=== PATIENT | female | born 1955 | race Caucasian/White ===

== ENCOUNTER 2019-04-29 17:19 | Emergency (ER) | payer OTHER ==
[~2019-04-29] VITALS: Ht 162.6 cm; Wt 88.0 kg
[~2019-04-29 17:19] MED LIST: ESTROGEN PO; MECL-76 PO
[2019-04-29 17:22] VITALS: BP 171/94
--- NOTE | 2019-04-29 17:41 | NUR ---
FIRST CONTACT WITH PT. PT STATES "I WAS HURT ON MY JOB. I HURT MY LEFT WRIST AND MY LOWER LEFT BACK. I WAS MOPPING AND SLIPPED." NO C/O HEAD TRAUMA PT'S AOX4. RESPS EVEN AND UNLABORED.
[2019-04-29] MEDS ORDERED: DIAZEPAM 5 MG TABLET ONE (17:49)
[2019-04-29] MEDS ORDERED: KETOROLAC 30 MG/1 ML ONE (17:49)
--- NOTE | 2019-04-29 17:56 | NUR ---
PT MEDICATED PER EMAR. PT TOLERATED WELL.
[2019-04-29] MEDS ORDERED: KETOROLAC 30 MG/1 ML IM ONE (18:00)
[2019-04-29] MEDS ORDERED: DIAZEPAM 5 MG TABLET PO ONE (18:00)
--- NOTE | 2019-04-29 19:09 | NUR ---
Patient given discharge instructions and they have confirmed that they understand the instructions. Patient ambulatory with steady gait.
== END 2019-04-29 19:10 | disposition home or self-care (01) ==
LOC: ED 18:45 → MERGE 18:45 → ED 19:10
DX: S39.012A Strain of muscle, fascia and tendon of lower back, initial encounter (principal); S63.522A Sprain of radiocarpal joint of left wrist, initial encounter; F17.200 Nicotine dependence, unspecified, uncomplicated; W01.0XXA Fall on same level from slipping, tripping and stumbling without subsequent striking against object, initial encounter; Y93.89 Activity, other specified; Y92.69 Other specified industrial and construction area as the place of occurrence of the external cause; Y99.0 Civilian activity done for income or pay
CPT/HCPCS: 29260; 72110; 73110; 96372; 99284; J1885

== ENCOUNTER 2020-04-23 18:40 | Emergency (ER) | payer OTHER ==
[~2020-04-23] VITALS: Ht 162.6 cm; Wt 84.2 kg
--- NOTE | 2020-04-23 19:05 | NUR ---
PT STATES "I DO NOT KNOW IF I PULLED A MUSCLE OR IF I HAVE A KIDNEY ISSUE" RIGHT SIDE FLANK PAIN STARTING 2 WEEKS AGO. PT DENIES ANY CP.
--- NOTE | 2020-04-23 19:07 | NUR ---
PT RESTING IN [facility], MONITORING IN PLACE, NAD NOTED AT THIS TIME, WILL CONTINUE TO MONITOR. CXR DONE, LAB AT BS.
[2020-04-23] MEDS ORDERED: ALBUTEROL/IPRATROPIUM 2.5MG/0.5MG, 3 ML NPPB ONE (19:30)
[2020-04-23 19:32] LABS: BASOPHILS % (AUTO) 1 % (0-1); EOSINOPHILS % (AUTO) 5 % (1-7); LYMPHOCYTES % (AUTO) 28 % (22-44); MEAN CORPUSCULAR HEMOGLOBIN 28.9 pg (27.0-34.8); MEAN CORPUSCULAR HGB CONC 33.5 g/dL (32.4-35.8); MEAN PLATELET VOLUME 9.1 fL (7.4-10.4); MONOCYTES % (AUTO) 6 % (2-9); NEUTROPHILS % (AUTO) 60 % (42-75); PLATELET COUNT 153 x10^3/uL (130-400); RED CELL DISTRIBUTION WIDTH 14.1 % (9.6-15.2)
[2020-04-23] MEDS ORDERED: ALBUTEROL/IPRATROPIUM 2.5MG/0.5MG, 3 ML ONE (19:32)
[2020-04-23 19:40] LABS: ALANINE AMINOTRANSFERASE 30 U/L (12-78); ANION GAP 7 mmol/L (5-15); CALCIUM 9.1 mg/dL (8.5-10.1); CHLORIDE 110 mmol/L (98-107)
[2020-04-23 19:43] LABS: ALKALINE PHOSPHATASE 101 U/L (45-117); BILIRUBIN,TOTAL 0.9 mg/dL (0.2-1.0); CREATININE 0.98 mg/dL (0.55-1.02); TOTAL PROTEIN 8.6 g/dL (6.4-8.2)
[2020-04-23 19:45] LABS: MICROSCOPIC INDICATED
[2020-04-23 19:53] LABS: MD SCAN
[2020-04-23 20:43] VITALS: BP 134/81
== END 2020-04-23 20:45 | disposition home or self-care (01) ==
LOC: ED 20:09
DX: S39.012A Strain of muscle, fascia and tendon of lower back, initial encounter (principal); J98.01 Acute bronchospasm; X58.XXXA Exposure to other specified factors, initial encounter; Y93.89 Activity, other specified; Y92.89 Other specified places as the place of occurrence of the external cause; Y99.8 Other external cause status
CPT/HCPCS: 36415; 71045; 80053; 81001; 85025; 94640; 99284